=== PATIENT | female | born 1975 | race Caucasian/White ===

== ENCOUNTER 2020-08-29 22:10 | Emergency (ER) | payer BC ==
[2020-08-29] MEDS ORDERED: XYLOCAINE VISCOUS 2% 20 ML CUP PO ONE (22:52)
[2020-08-29] MEDS ORDERED: Adacel Vial IM ONE ×2 (22:53→22:58)
[2020-08-29] MEDS ORDERED: XYLOCAINE HCl Viscous ONE (22:54)
--- NOTE | 2020-08-29 23:37 | ERPHSYRPT ---
- History of Present Illness Time Seen by Provider: 08/29/20 23:32 Source: patient, family Exam Limitations: no limitations Patient Subjective Stated Complaint: pt states, "I cut my finger butchering a beef earlier today". Triage Nursing Assessment: pt states, "I was butchering a beef today and cut my finger around 1230". Band aid applied when pt arrived, scant amt of blood on bandaid. 1.2cm L x 0.1 cm W. Laceration looks like a backward check shira. Pt states, "It keeps opening up". Cleansed wound in ER with NS and hibiclens. Physician History: pt has incised lac left index no other injuries Timing/Duration: today Severity: mild Location: hands Possible Causes: other (cut) Associated Symptoms: denies symptoms Allergies/Adverse Reactions: No Known Drug Allergies Allergy (Unverified 08/29/20 22:30) Home Medications: Norgestimate-Ethinyl Estradiol [Tri-Estarylla Tablet] 1 tab PO DAILY 08/29/20 [History] Pantoprazole 40 mg [Protonix 40 mg IV] 1 tab PO DAILY 08/29/20 [History] Hx Tetanus, Diphtheria Vaccination/Date Given: No Hx Influenza Vaccination/Date Given: No Hx Pneumococcal Vaccination/Date Given: No Immunizations Up to Date: No Travel Risk - International Travel Have you traveled outside of the country in past 3 weeks: No - Coronavirus Screening Are you exhibiting any of the following symptoms?: No Close contact with a COVID-19 positive Pt in past 14-21 Days: No - Review of Systems Constitutional: No Fever, No Chills Eyes: No Symptoms Ears, Nose, & Throat: No Symptoms Respiratory: No Cough, No Dyspnea Cardiac: No Chest Pain, No Edema, No Syncope Abdominal/Gastrointestinal: No Abdominal Pain, No Nausea, No Vomiting, No Diarrhea Genitourinary Symptoms: No Dysuria Musculoskeletal: No Back Pain, No Neck Pain Skin: Other (lac left index), No Rash Neurological: No Dizziness, No Focal Weakness, No Sensory Changes Psychological: No Symptoms Endocrine: No Symptoms All Other Systems: Reviewed and Negative - Past Medical History Pertinent Past Medical History: Yes Neurological History: No Pertinent History ENT History: No Pertinent History Cardiac History: Hypertension Respiratory History: No Pertinent History Endocrine Medical History: No Pertinent History Musculoskeletal History: Arthritis GI Medical History: GERD, Gallbladder Disease History: No Pertinent History Psycho-Social History: No Pertinent History Female Reproductive Disorders: No Pertinent History - Past Surgical History Past Surgical History: Yes Neuro Surgical History: No Pertinent History Cardiac: No Pertinent History Respiratory: No Pertinent History Gastrointestinal: Cholecystectomy Genitourinary: No Pertinent History Musculoskeletal: No Pertinent History Female Surgical History: No Pertinent History - Social History Smoking Status: Never smoker Exposure to second hand smoke: No Drug Use: none Patient Lives Alone: Yes - Female History Hx Now: No - Nursing Vital Signs Nursing Vital Signs: Initial Vital Signs Temperature 96.7 F 08/29/20 22:19 Pulse Rate 80 08/29/20 22:19 Respiratory Rate 18 08/29/20 22:19 Blood Pressure 111/84 08/29/20 22:19 O2 Sat by Pulse Oximetry 98 08/29/20 22:19 Pain Scale Pain Intensity 4 - Physical Exam General Appearance: no apparent distress, alert Eye Exam: PERRL/EOMI, eyes nml inspection Ears, Nose, Throat Exam: normal ENT inspection, pharynx normal, moist mucous membranes Neck Exam: normal inspection, non-tender, supple, full range of motion Respiratory Exam: normal breath sounds, lungs clear, No respiratory distress Cardiovascular Exam: regular rate/rhythm, normal heart sounds Gastrointestinal/Abdomen Exam: soft, mass, No tenderness Back Exam: normal inspection, normal range of motion, No CVA tenderness, No vertebral tenderness Extremity Exam: normal inspection, normal range of motion Neurologic Exam: alert, oriented x 3, cooperative, normal mood/affect, sensation nml, No motor deficits Skin Exam: normal color, warm, dry, laceration SpO2 Interpretation: normal SpO2: 98 O2 Delivery: Room Air Procedures - Laceration/Wound Repair Left Finger Wound Location: Left, hand Wound Length (cm): 2 Wound's Depth, Shape: linear, flap, into subcut Wound Explored: no foreign body noted Irrigated: Yes (NS) Hibiclens Prep: Yes Anesthesia: local, 1% Lidocaine Volume Anesthetic (ccs): 1 Wound Debrided: minimal Wound Repaired With: sutures Suture Size/Type: 4-0, nylon Number of Sutures: 3 Layer Closure?: No Sterile Dressing Applied?: Yes Splint Applied?: No Sling Applied?: No - Course Nursing assessment & vital signs reviewed: Yes Ordered Tests: Active Orders 24 hr Category Date Time Status Sutures STAT Care 08/29/20 22:53 Active Medication Summary Discontinued Medications Generic Name Dose Route Start Last Admin Trade Name Emilia PRN Reason Stop Dose Admin Diphtheria/Tetanus/Acell Pertussis 0.5 ml 08/29/20 22:53 08/29/20 22:59 Adacel Vial IM 08/29/20 22:54 0.5 ml .ONCE ONE Administration Diphtheria/Tetanus/Acell Pertussis Confirm 08/29/20 22:58 Adacel Vial Administered 08/29/20 22:59 Dose 0.5 ml IM .STK-MED ONE Lidocaine HCl 10 ml 08/29/20 22:52 08/29/20 22:56 Xylocaine Viscous 2% 20 Ml Cup PO 08/29/20 22:53 10 ml STAT ONE Administration Lidocaine HCl Confirm 08/29/20 22:54 Xylocaine Hcl Viscous * Administered 08/29/20 22:55 Dose 10 ml .ROUTE .STK-MED ONE - Progress Progress: improved, re-examined Counseled pt/family regarding: diagnosis, need for follow-up - Departure Departure Disposition: Home Clinical Impression: Laceration of left index finger Condition: Good Critical Care Time: No Referrals: CELINA RIVAS, FINANCE LEAD [Primary Care Provider] - Instructions: Laceration Repair With Stitches (DC) Additional Instructions: return meantime if any concners. stitches may be removed in 10 days. use antibiotic ointment until healed daily. Prescriptions: Mupirocin [Bactroban OINTMENT] 22 gm TP BID #1 tube
[2020-08-29] MEDS ORDERED: KEFLEX 500 MG PO ONE (23:39)
[2020-08-29] MEDS ORDERED: KEFLEX 500 MG ONE (23:42)
[2020-08-30 00:47] VITALS: BP 110/76; PULSE 85; O2SAT 100
== END 2020-08-29 23:45 | disposition home or self-care (01) ==
LOC: ED 22:10
DX: S61.211A Laceration without foreign body of left index finger without damage to nail, initial encounter (principal); M79.645 Pain in left finger(s); W26.0XXA Contact with knife, initial encounter
CPT/HCPCS: 12001; 90471; 90715; 99284; A9270-GY

== ENCOUNTER 2021-04-10 09:57 | Emergency (ER) | payer BC ==
--- NOTE | 2021-04-10 10:27 | ERPHSYRPT ---
- History of Present Illness Time Seen by Provider: 04/10/21 10:23 Source: patient Exam Limitations: no limitations Patient Subjective Stated Complaint: Chest pain Triage Nursing Assessment: Patient ambulated into ED and transferred self to bed. Patient A+O X 3. Patient's skin pink, warm and dry. Patient complains of chest pain for over 3 weeks. Patient states her chest has some discomfort 4/10. Patient states she just feels weak. Lungs clear a/p siomara. No edema noted. Physician History: Patient is 45-year-old female with significant past medical history of hypertension started having left-sided chest pain for last 3 weeks for which she has been followed up by her primary care physician as well as as an outpatient clinic where she was tested for coronavirus and which was negative. Patient also has been tested for different allergy work-up as well as rheumatoid and lupus work-up which all were negative. She does not smoke. She denies any fever chills nausea or vomiting. She was told that she has a viral syndrome when which is causing her chest pain and shortness of breath. Patient only take propanolol for her blood pressure. She states otherwise she is healthy. She does not smoke or drink excessive amount of alcohol. Timing/Duration: week(s) (three weeks) Severity: mild Modifying Factors: Improves With: nothing Associated Symptoms: denies symptoms Allergies/Adverse Reactions: No Known Drug Allergies Allergy (Verified 04/10/21 10:01) Home Medications: Norgestimate-Ethinyl Estradiol [Tri-Estarylla Tablet] 1 tab PO DAILY 08/29/20 [History] Pantoprazole 40 mg [Protonix 40 mg IV] 1 tab PO DAILY 08/29/20 [History] Famotidine [Pepcid] 1 tab PO DAILY 04/10/21 [History] Propranolol HCl 20 mg [Inderal 20 MG] 80 mg PO DAILY 04/10/21 [History] Hx Tetanus, Diphtheria Vaccination/Date Given: No Hx Influenza Vaccination/Date Given: No Hx Pneumococcal Vaccination/Date Given: No Immunizations Up to Date: Yes Travel Risk - International Travel Have you traveled outside of the country in past 3 weeks: No - Coronavirus Screening Are you exhibiting any of the following symptoms?: No Close contact with a COVID-19 positive Pt in past 14-21 Days: No - Vaccine Status Have you recieved a Covid-19 vaccination: No - Review of Systems Constitutional: No Fever, No Chills Eyes: No Symptoms Ears, Nose, & Throat: No Symptoms Respiratory: No Cough, No Dyspnea Cardiac: Chest Pain (left side), No Edema, No Syncope Abdominal/Gastrointestinal: No Abdominal Pain, No Nausea, No Vomiting, No Diarrhea Genitourinary Symptoms: No Dysuria Musculoskeletal: No Back Pain, No Neck Pain Skin: No Rash Neurological: No Dizziness, No Focal Weakness, No Sensory Changes Psychological: No Symptoms Endocrine: No Symptoms All Other Systems: Reviewed and Negative - Past Medical History Pertinent Past Medical History: Yes Neurological History: No Pertinent History ENT History: No Pertinent History Cardiac History: Hypertension Respiratory History: No Pertinent History Endocrine Medical History: No Pertinent History Musculoskeletal History: Arthritis GI Medical History: GERD, Gallbladder Disease History: No Pertinent History Psycho-Social History: No Pertinent History Female Reproductive Disorders: No Pertinent History - Past Surgical History Past Surgical History: Yes Neuro Surgical History: No Pertinent History Cardiac: No Pertinent History Respiratory: No Pertinent History Gastrointestinal: Cholecystectomy Genitourinary: No Pertinent History Musculoskeletal: No Pertinent History Female Surgical History: No Pertinent History - Social History Smoking Status: Never smoker Exposure to second hand smoke: No Drug Use: none Patient Lives Alone: Yes - Female History Hx Last Menstrual Period: 2 weeks ago Hx Now: No - Nursing Vital Signs Nursing Vital Signs: Initial Vital Signs Temperature 96.6 F 04/10/21 10:05 Pulse Rate 66 04/10/21 10:05 Respiratory Rate 18 04/10/21 10:05 Blood Pressure 113/84 04/10/21 10:05 O2 Sat by Pulse Oximetry 98 04/10/21 10:05 Pain Scale Pain Intensity 4 - Physical Exam General Appearance: no apparent distress, alert Eye Exam: PERRL/EOMI, eyes nml inspection Ears, Nose, Throat Exam: normal ENT inspection, TMs normal, pharynx normal, moist mucous membranes Neck Exam: normal inspection, non-tender, supple, full range of motion Respiratory Exam: normal breath sounds, lungs clear, No respiratory distress Cardiovascular Exam: regular rate/rhythm, normal heart sounds, normal peripheral pulses Gastrointestinal/Abdomen Exam: soft, normal bowel sounds, No tenderness, No mass Back Exam: normal inspection, normal range of motion, No CVA tenderness, No vertebral tenderness Extremity Exam: normal inspection, normal range of motion, pelvis stable Neurologic Exam: alert, oriented x 3, cooperative, normal mood/affect, nml cerebellar function, nml station & gait, sensation nml, No motor deficits Skin Exam: normal color, warm, dry, No rash Lymphatic Exam: No adenopathy SpO2: 98 - Course Nursing assessment & vital signs reviewed: Yes EKG Interpreted by Me: Sinus Rhythm - Radiology Exams Chest X-ray Interpretation: Reviewed by me Ordered Tests: Active Orders 24 hr Category Date Time Status EKG-ER Only STAT Care 04/10/21 10:16 Active CHEST 2 VIEWS (PA AND LAT) Stat Exams 04/10/21 11:33 Taken CBC W DIFF Stat Lab 04/10/21 10:30 Completed CMP Stat Lab 04/10/21 10:30 Completed D-DIMER QUANTITATIVE Stat Lab 04/10/21 10:30 Completed TROPONIN Q3H Lab 04/10/21 10:30 Completed TROPONIN Q3H Lab 04/10/21 13:30 Ordered TROPONIN Q3H Lab 04/10/21 16:30 Ordered TROPONIN Q3H Lab 04/10/21 19:30 Ordered TROPONIN Q3H Lab 04/10/21 22:30 Ordered Lab/Rad Data: Laboratory Result Diagrams 04/10/21 10:30 04/10/21 10:30 Laboratory Results 04/10/21 04/10/21 04/10/21 Range/Units 10:30 10:30 10:30 WBC (4.0-10.5) K/mm3 RBC (4.1-5.4) M/mm3 Hgb (12.0-16.0) gm/dl Hct (35-47) % MCV (78-100) fl MCH (26-32) pg MCHC (32-36) g/dl RDW (11.5-14.0) % Plt Count (150-450) K/mm3 MPV (7.5-11.0) fl Gran % (36.0-66.0) % Eos # (Auto) (0-0.5) Absolute Lymphs (auto) (1.0-4.6) Absolute Monos (auto) (0.0-1.3) Lymphocytes % (24.0-44.0) % Monocytes % (0.0-12.0) % Eosinophils % (0.00-5.0) % Basophils % (0.0-0.4) % Absolute Granulocytes (1.4-6.9) Basophils # (0-0.4) D-Dimer 434 (215-500) ng/mL Sodium 137 (137-145) mmol/L Potassium 4.1 (3.5-5.1) mmol/L Chloride 104 (98-107) mmol/L Carbon Dioxide 22 (22-30) mmol/L Anion Gap 15.0 (5-15) MEQ/L BUN 13 (7-17) mg/dL Creatinine 0.76 (0.52-1.04) mg/dL Estimated GFR > 60.0 ML/MIN Glucose 112 H (74-106) mg/dL Calcium 8.9 (8.4-10.2) mg/dL Total Bilirubin 0.30 (0.2-1.3) mg/dL AST 53 H (14-36) U/L ALT 33 (0-35) U/L Alkaline Phosphatase 96 (38-126) U/L Troponin I < 0.012 (0.000-0.034) ng/mL Serum Total Protein 7.7 (6.3-8.2) g/dL Albumin 4.0 (3.5-5.0) g/dL 04/10/21 Range/Units 10:30 WBC 10.4 (4.0-10.5) K/mm3 RBC 4.51 (4.1-5.4) M/mm3 Hgb 11.8 L (12.0-16.0) gm/dl Hct 39.1 (35-47) % MCV 86.7 (78-100) fl MCH 26.2 (26-32) pg MCHC 30.2 L (32-36) g/dl RDW 16.9 H (11.5-14.0) % Plt Count 338 (150-450) K/mm3 MPV 11.0 (7.5-11.0) fl Gran % 70.8 H (36.0-66.0) % Eos # (Auto) 0.38 (0-0.5) Absolute Lymphs (auto) 1.98 (1.0-4.6) Absolute Monos (auto) 0.62 (0.0-1.3) Lymphocytes % 19.0 L (24.0-44.0) % Monocytes % 6.0 (0.0-12.0) % Eosinophils % 3.7 (0.00-5.0) % Basophils % 0.5 (0.0-0.4) % Absolute Granulocytes 7.38 H (1.4-6.9) Basophils # 0.05 (0-0.4) D-Dimer (215-500) ng/mL Sodium (137-145) mmol/L Potassium (3.5-5.1) mmol/L Chloride (98-107) mmol/L Carbon Dioxide (22-30) mmol/L Anion Gap (5-15) MEQ/L BUN (7-17) mg/dL Creatinine (0.52-1.04) mg/dL Estimated GFR ML/MIN Glucose (74-106) mg/dL Calcium (8.4-10.2) mg/dL Total Bilirubin (0.2-1.3) mg/dL AST (14-36) U/L ALT (0-35) U/L Alkaline Phosphatase (38-126) U/L Troponin I (0.000-0.034) ng/mL Serum Total Protein (6.3-8.2) g/dL Albumin (3.5-5.0) g/dL - Progress Progress: improved Counseled pt/family regarding: lab results, diagnosis, need for follow-up, rad results - Departure Departure Disposition: Home Clinical Impression: Chest pain at rest Condition: Stable Critical Care Time: No Referrals: CELINA RIVAS FILTER CHANGING TECHNICIAN [Primary Care Provider] - Instructions: Chest Pain (DC) Additional Instructions: Discharge/Care Plan ISHA WOMACK was seen on 04/10/21 in the Emergency Room. The patient was counseled regarding Diagnosis,Lab results, Imaging studies, need for follow up and when to return to the Emergency Room. Prescriptions given: Discharge Note I have spoken with the patient and/or caregivers. I have explained the patient's condition, diagnosis and treatment plan based on the information available to me at this time. I have answered the patient's and/or caregiver's questions and addressed any concerns. The patient and/or caregivers have as good understanding of the patient's diagnosis, condition and treatment plan as can be expected at this point. The vital signs have been stable. The patient's condition is stable and appropriate for discharge from the emergency department. The patient will pursue further outpatient evaluation with the primary care physician or other designated or consulting physician as outlined in the discharge instructions. The patient and/or caregivers are agreeable to this plan of care and follow-up instructions have been explained in detail. The patient and/or caregivers have received these instruction. The patient/and or caregivers are aware that any significant change in condition or worsening of symptoms should prompt an immediate return to this or the closest emergency department or call 911. ISHA WOMACK was seen on 04/10/21 n the Emergency Room. At that time you were treated for an emergent condition, during your visit Laboratory, Radiology and/o r other procedures may have been ordered. It is very important that you follow- up with your Primary Care Physician CELINA RIVAS NP within the next 24-48 hours to review your Emergency Room visit and the final results of testing that was ordered. Some test results such as Urine Cultures, Blood Cultures, and other cultures if ordered will not be finalized for 24-48 hours. If you do not have a Primary Care Provider please call the medical records department at [phone] ext [phone] to obtain a copy of your results or you may sign into our patient portal to obtain these results by visiting us @ [email or web address] and completing the following steps: 1. Click on the Patient Portal link 2. Click the Patient Self Enrollment Link to complete the enrollment form and entering your 3. Once the enrollment form is completed you will receive an email with a temporary ID and password at the email address you provided. 4. Next choose a user name and password. Your user name must be at least 4 characters long and your password must be at least 4 characters long. 5. Choose a security question from the list and provide your answer to the question. If you already have signed into the Health Portal you may access your Health Care Information 05/02 by the following steps: 1. Login to our website @ [email or web address] 2. Enter your original user name and password. FAQS The [facility] Health Portal is an online tool that contains your Lab Results, Radiology Reports, Visit History, Discharge Instructions and Health Summary Lab and Radiology Results will not be available for 72 hours on the portal. The Portal is a secure site, passwords are encryted and URLs are re-written so they cannot be copied and pasted. You and authorized family members are the only ones who can access your Portal. Also there is a timeout feature that protects your information if you leave the Portal page open. If you have technical difficulty please use the Contact Us link on the page this will allow you to submit any questions you have regarding the Portal or you may contact the Medical Record Department at [phone] ext [phone]. We have done all emergent laboratory data and x-ray to rule out acute heart and lung problems. All your test has been negative including chest x-ray. But considering your left-sided chest pain history for last 2 to 3 weeks it is important that you follow-up with your primary care physician and consider getting cardiology evaluation.
[2021-04-10 10:42] LABS: Absolute Neutrophil Ct (ANC) 7.38 (1.4-6.9); BASOPHIL % 0.5 % (0.0-0.4); Basophil (Absolute #) 0.05 (0-0.4); Eosinophil % 3.7 % (0.00-5.0); Eosinophil (Absolute #) 0.38 (0-0.5); Hematocrit 39.1 % (35-47); Hemoglobin 11.8 gm/dl (12.0-16.0); Lymphocyte (Absolute #) 1.98 (1.0-4.6); Mean Cell Volume 86.7 fl (78-100); Mean Corpuscular Hemoglobin 26.2 pg (26-32); Mean Corpuscular Hgb Concent. 30.2 g/dl (32-36); Monocyte (Absolute #) 0.62 (0.0-1.3); Neutrophil % 70.8 % (36.0-66.0); Platelet Count 338 K/mm3 (150-450); Red Blood Count 4.51 M/mm3 (4.1-5.4); Red Cell Distribution Width 16.9 % (11.5-14.0); White Blood Count 10.4 K/mm3 (4.0-10.5)
[2021-04-10 10:50] LABS: ALKALINE PHOSPHATASE 96 U/L (38-126); BLOOD UREA NITROGEN 13 mg/dL (7-17); CHLORIDE 104 mmol/L (98-107); Calcium 8.9 mg/dL (8.4-10.2); Carbon Dioxide 22 mmol/L (22-30); Creatinine 1 0.76 mg/dL (0.52-1.04); EST GLOMERULAR FILTRATION RATE > 60.0 ML/MIN; Glucose 112 mg/dL (74-106); Potassium 4.1 mmol/L (3.5-5.1); SGOT/AST 53 U/L (14-36); SGPT/ALT 33 U/L (0-35); SODIUM 137 mmol/L (137-145); Total Protein 7.7 g/dL (6.3-8.2)
[2021-04-10 12:10] VITALS: BP 118/76; PULSE 58
[2021-04-10 12:24] VITALS: O2SAT 100
--- NOTE | 2021-04-10 18:59 | XRAY ---
Indication: Left chest pain. Comparison: None PA/lateral chest demonstrates left midlung calcified granuloma. Remaining heart and lungs unremarkable. Bony thorax intact with moderate degenerative changes throughout the spine and minimal multilevel anterior wedging deformities. Impression: Nonacute chest with chronic features.
== END 2021-04-10 12:24 | disposition home or self-care (01) ==
LOC: ED 09:57
DX: R07.89 Other chest pain (principal); I10 Essential (primary) hypertension; Z79.899 Other long term (current) drug therapy
CPT/HCPCS: 36415; 71046; 80053; 84484; 85025; 85379; 93005; 99284

== ENCOUNTER 2025-04-04 02:54 | Emergency (ER) | payer OTHER ==
--- NOTE | 2025-04-04 03:04 | ERPHSYRPT ---
- History of Present Illness Time Seen by Provider: 04/04/25 03:04 Physician History: This is a 49-year-old white female patient who arrives to the emergency department by private vehicle with the complaint of skin rash/welts that itch and began to approximately 1:00 this morning. She has itchy skin of her back side torso does and hands. All of the rash sites are slightly raised pink patches/welts. Patient was recently diagnosed with "walking pneumonia" and given a prescription for doxycycline, Tessalon Perles, and Medrol Dosepak. In addition she is taking Benadryl. She woke up approxi-1:00 with these additional symptoms of itchy and skin rash/welts. She took a 25 mg generic Benadryl approximately 1-1 30 this morning. By the time she got here she states that her symptoms are improving. Patient states that her "walking pneumonia "symptom also been improving. She was on those medicines for cough that is productive of yellowish-green sputum. Patient has a history of gastroesophageal reflux disease, hypertension and arthritis. Patient denies chest pain. She denies shortness of breath. Her room air oxygen saturation level is 97 to 98%. Timing/Duration: today (Early this a.m.) Quality: itchy Severity: mild Location: torso (Posterior torso and sides of torso), hands (Bilateral hands) Possible Causes: no cause identified Associated Symptoms: rash Allergies/Adverse Reactions: No Known Drug Allergies Allergy (Verified 04/10/21 10:01) Home Medications: Benzonatate 100 mg PO Q8HPRN PRN 04/04/25 [History] Doxycycline Hyclate 100 mg PO BID 04/04/25 [History] Metoprolol Tartrate 25 mg [Lopressor 25MG Tab] 25 mg PO DAILY 04/04/25 [History] Norgestimate-Ethinyl Estradiol [Tri-Vaishali 28 Tablet] 1 each PO DAILY 04/04/25 [History] Sitagliptin Phosphate [Januvia] 100 mg PO DAILY 04/04/25 [History] methylPREDNISolone [Methylprednisolone] 1 tab PO UD 04/04/25 [History] Hx Tetanus, Diphtheria Vaccination/Date Given: No Hx Influenza Vaccination/Date Given: No Hx Pneumococcal Vaccination/Date Given: No Travel Risk - International Travel Have you traveled outside of the country in past 3 weeks: No - Emerging Infectious Disease Are you exhibiting symptoms associated with any current EIDs: No - Review of Systems Constitutional: No Symptoms Eyes: No Symptoms Ears, Nose, & Throat: No Symptoms Respiratory: Cough Cardiac: No Symptoms Abdominal/Gastrointestinal: No Symptoms Genitourinary Symptoms: No Symptoms Musculoskeletal: No Symptoms Skin: Rash Neurological: No Symptoms Psychological: No Symptoms Endocrine: No Symptoms Hematologic/Lymphatic: No Symptoms Immunological/Allergic: No Symptoms All Other Systems: Reviewed and Negative - Past Medical History Pertinent Past Medical History: Yes Neurological History: No Pertinent History ENT History: No Pertinent History Cardiac History: Hypertension Respiratory History: No Pertinent History Endocrine Medical History: No Pertinent History Musculoskeletal History: Arthritis GI Medical History: GERD, Gallbladder Disease History: No Pertinent History Psycho-Social History: No Pertinent History Female Reproductive Disorders: No Pertinent History - Past Surgical History Past Surgical History: Yes Neuro Surgical History: No Pertinent History Cardiac: No Pertinent History Respiratory: No Pertinent History Gastrointestinal: Cholecystectomy Genitourinary: No Pertinent History Musculoskeletal: No Pertinent History Female Surgical History: No Pertinent History - Social History Smoking Status: Never smoker Exposure to second hand smoke: No Drug Use: none Patient Lives Alone: Yes - Nursing Vital Signs Nursing Vital Signs: Initial Vital Signs O2 Sat by Pulse Oximetry 97 04/04/25 03:02 Pain Scale Pain Intensity 0 - Physical Exam General Appearance: no apparent distress, alert, anxiety Eye Exam: PERRL/EOMI, eyes nml inspection Ears, Nose, Throat Exam: normal ENT inspection, moist mucous membranes Neck Exam: normal inspection, non-tender, supple, full range of motion Respiratory Exam: normal breath sounds, lungs clear, airway intact, No chest tenderness, No respiratory distress Cardiovascular Exam: regular rate/rhythm, normal heart sounds, normal peripheral pulses Gastrointestinal/Abdomen Exam: soft, normal bowel sounds, No tenderness Pelvic Exam: not done Rectal Exam: not done Back Exam: normal range of motion, rash (Multiple slightly pink raised patches rash/welts), No CVA tenderness, No vertebral tenderness Extremity Exam: normal range of motion, pelvis stable, other (Similar type skin rash on the dorsal aspect of the both of her hands) Neurologic Exam: alert, oriented x 3, cooperative, 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, normal mood/affect, nml cerebellar function, nml station & gait, sensation nml Skin Exam: rash (Multiple pink raised welts/rash on the back torso and dorsal aspect of both hands) Lymphatic Exam: No adenopathy SpO2 Interpretation: normal O2 Delivery: Room Air - Course Nursing assessment & vital signs reviewed: Yes Ordered Tests: Medication Summary Discontinued Medications Generic Name Dose Route Start Last Admin Trade Name Emilia PRN Reason Stop Dose Admin Methylprednisolone Sodium 0 mg 04/04/25 03:18 Succinate 125 mg/ Sterile IM 04/04/25 03:19 Water 2 ml STAT ONE Diphenhydramine HCl 25 mg 04/04/25 03:18 Diphenhydramine Hcl 25 Mg Capsule PO 04/04/25 03:19 STAT ONE Famotidine 40 mg 04/04/25 03:18 Famotidine 20 Mg Tablet PO 04/04/25 03:19 STAT ONE - Progress Progress: improved, re-examined Progress Note: 04/04/25 03:25 My medical decision making and the assignment of low complexity of this patient's medical issue today is based on review of the patient's past medical history, review the patient's medication list, review the patient drug allergy list, history of present illness and physical findings on examination. The workup in this patient does not necessitate any radiographic or laboratory studies. We will provide the patient with an intramuscular dose of Solu-Medrol, 25 mg of oral Benadryl and 40 mg of oral Pepcid. Differential diagnosis includes but is not limited to medication side effect, allergic reaction, contact dermatitis Counseled pt/family regarding: diagnosis, need for follow-up Medical Desision Making - Independent Historian Additional History obtained from: Family - Diagnostic Testing Diagnostic test were ordered, analyzed, and reviewed by me: Yes - Risk of complications Low Risk: Low risk of morbidity from additional dx testing or treatment The pt has a mod risk of morbidity or mortality based on: Need for prescription drug management - Departure Departure Disposition: Home Clinical Impression: Allergic reaction Condition: Stable Critical Care Time: No Referrals: CELINA RIVAS [employer]FACTURING ENGINEERING DIRECTOR [Primary Care Provider, UNKNOWN] - Follow up/PCP as directed Additional Instructions: Keep your skin moist with unscented skin lotion. Continue your Medrol Dosepak as prescribed. Take Benadryl 25 mg orally 3 times a day for the next 4 days. Take your Pepcid as prescribed. Continue your Tessalon Perles and antibiotics as prescribed. Call your primary prescribing provider on 04/06/2025, to make arrangements for follow-up appointment for further evaluation management. Return to the emergency department if symptoms worsen Prescriptions: Famotidine 20 mg [Pepcid 20 MG] 20 mg PO DAILY #5 tablet
[2025-04-04 03:15] VITALS: O2SAT 97
[2025-04-04] MEDS ORDERED: Pepcid 20 MG ONE (03:23)
[2025-04-04] MEDS ORDERED: Sterile H2O 10 ml IJ ONE (03:23)
[2025-04-04] MEDS: Pepcid 20 MG PO ONE (03:24)
[2025-04-04] MEDS ORDERED: BENADRYL 25 MG CAPSULE ONE (03:24)
[2025-04-04] MEDS: solu-MEDROL 125 MG, Sterile H2O 10 ml 2 ML IM ONE (03:24)
[2025-04-04] MEDS: BENADRYL 25 MG CAPSULE PO ONE (03:24)
[2025-04-04 03:40] VITALS: BP 146/90; PULSE 96
== END 2025-04-04 03:58 | disposition home or self-care (01) ==
LOC: ED 02:54
DX: T78.40XA Allergy, unspecified, initial encounter (principal); R21 Rash and other nonspecific skin eruption; I10 Essential (primary) hypertension; Z79.84 Long term (current) use of oral hypoglycemic drugs; Z79.899 Other long term (current) drug therapy